=== PATIENT | female | born 1950 | race Caucasian/White ===

== ENCOUNTER 2021-03-14 15:34 | Inpatient (IN) | payer MEDICARE, OTHER ==
[~2021-03-14] VITALS: Ht 167.6 cm; Wt 110.2 kg
[~2021-03-14 15:34] MED LIST: ALDACTONE25 MG PO; ALL DAY ALLERGY10 M2 PO; AMARYL4 MG PO; CATAPRES0.2 MG PO; COREG 25MG TAB25 MG PO; CRESTOR 10 MG T10 MG PO; CRESTOR40 MG PO; CYMBALTA60 MG PO; GLUCOPHAGE XR500 MG PO; MAGOX 400400 MG PO; NOVOLOG MI100 UNIT/2 SC; PROTONIX40 MG PO; ULTRAM50 MG PO; embrel
[2021-03-14 17:06] LABS: HEMOGLOBIN 14.7 gm/dl (12.3-15.3); RED BLOOD COUNT 4.69 M/UL (4.00-5.10); WHITE BLOOD COUNT 10.1 K/UL (4.5-11.0)
[2021-03-14 17:36] LABS: BUN/CREATININE RATIO 17 (0-10)
[2021-03-15 06:50] LABS: HEMOGLOBIN 13.7 gm/dl (12.3-15.3); RED BLOOD COUNT 4.39 M/UL (4.00-5.10); WHITE BLOOD COUNT 11.7 K/UL (4.5-11.0)
[2021-03-16 03:43] LABS: RED BLOOD COUNT 3.91 M/UL (4.00-5.10); WHITE BLOOD COUNT 10.6 K/UL (4.5-11.0)
[2021-03-17 07:01] LABS: HEMOGLOBIN 11.6 gm/dl (12.3-15.3); RED BLOOD COUNT 3.87 M/UL (4.00-5.10)
[2021-03-17 07:06] LABS: WHITE BLOOD COUNT 16.6 K/UL (4.5-11.0)
[2021-03-18 06:17] LABS: HEMOGLOBIN 10.7 gm/dl (12.3-15.3); RED BLOOD COUNT 3.5 M/UL (4.00-5.10)
[2021-03-18 06:30] LABS: WHITE BLOOD COUNT 8.1 K/UL (4.5-11.0)
[2021-03-19 06:24] LABS: HEMOGLOBIN 10.5 gm/dl (12.3-15.3); RED BLOOD COUNT 3.28 M/UL (4.00-5.10)
[2021-03-20 04:01] LABS: HEMOGLOBIN 9.3 gm/dl (12.3-15.3); RED BLOOD COUNT 3.02 M/UL (4.00-5.10)
[2021-03-21 03:50] LABS: HEMOGLOBIN 9.4 gm/dl (12.3-15.3); RED BLOOD COUNT 3.07 M/UL (4.00-5.10)
[2021-03-21 03:51] LABS: WHITE BLOOD COUNT 9.3 K/UL (4.5-11.0)
[2021-03-21] MEDS ORDERED: ELIQUIS 2.5 MG2.5 MG PO (10:12)
== END 2021-03-21 17:21 | DRG 481 ==
LOC: ER1 15:34 → M/S 18:22 → CDU 18:22 → M/S 19:30
PROVIDERS: Internal Medicine; Orthopaedic Surgery; Physician Assistant; ADMIT Internal Medicine
PROC: 0QS604Z Reposition Right Upper Femur with Internal Fixation Device, Open Approach (ICD-10-PCS; principal; 2021-03-15 13:37)
DX: S72.141A Displaced intertrochanteric fracture of right femur, initial encounter for closed fracture (principal); N17.9 Acute kidney failure, unspecified; Z20.822 Contact with and (suspected) exposure to COVID-19; I12.9 Hypertensive chronic kidney disease with stage 1 through stage 4 chronic kidney disease, or unspecified chronic kidney disease; G89.29 Other chronic pain; E78.5 Hyperlipidemia, unspecified; E11.22 Type 2 diabetes mellitus with diabetic chronic kidney disease; E87.5 Hyperkalemia; E66.9 Obesity, unspecified; K59.00 Constipation, unspecified; Z96.653 Presence of artificial knee joint, bilateral; N18.30 Chronic kidney disease, stage 3 unspecified; E78.00 Pure hypercholesterolemia, unspecified; W01.0XXA Fall on same level from slipping, tripping and stumbling without subsequent striking against object, initial encounter; Y92.098 Other place in other non-institutional residence as the place of occurrence of the external cause; Z79.4 Long term (current) use of insulin; Z90.49 Acquired absence of other specified parts of digestive tract; Z90.710 Acquired absence of both cervix and uterus; Z88.6 Allergy status to analgesic agent; Z82.49 Family history of ischemic heart disease and other diseases of the circulatory system; Z80.3 Family history of malignant neoplasm of breast; Y92.009 Unspecified place in unspecified non-institutional (private) residence as the place of occurrence of the external cause; Z68.39 Body mass index [BMI] 39.0-39.9, adult
CPT/HCPCS: 36415; 71045; 72131; 73502; 73552; 76000; 80048; 80053; 81001; 82550; 82553; 82962; 83735; 83874; 83880; 84133; 84300; 84484; 85025; 85027; 85610; 85730; 86850; 86900; 86901; 87086; 89050; 93005; 96374; 96375; 97110; 97110-GP-CQ; 97162; 97165; 97530-GP-CQ; 99285; C1713; J0171; J0690; J0696; J1100; J1170; J1650; J2001; J2250; J2270; J2405; J2550; J2704; J2710; J2795; J3010; J7030; J7120; U0002

== ENCOUNTER → 2022-01-05 | Outpatient (CLI) | payer MEDICARE, OTHER ==
[~2022-01-05] MED LIST changes: +ELIQUIS 2.5 MG2.5 MG PO
== END ==
LOC: KOH-I 09:55
DX: J32.9 Chronic sinusitis, unspecified (principal); J34.2 Deviated nasal septum
CPT/HCPCS: 70486

== ENCOUNTER → 2022-04-13 | Outpatient (CLI) | payer MEDICARE, OTHER | LOC: KOH-I 04-10 15:15 | DX: R60.0 Localized edema (principal) | CPT/HCPCS: 93925 ==